=== PATIENT | male | born 1935 | race Caucasian/White ===

== ENCOUNTER 2018-01-23 10:48 | Inpatient (IN) | payer MEDICARE, OTHER ==
[2018-01-23] MEDS ORDERED: Sodium Chloride 0.9% 1,000 ML IV ONE (11:07)
[2018-01-23 11:31] LABS: BASOPHILE ABSOLUTE 0.1 Th/cumm (0-0.2); EOSINOPHILE ABSOLUTE 0.5 Th/cmm (0.1-0.4); HEMATOCRIT 32.9 % (41.0-60); HEMOGLOBIN 11.1 gm/dL (12-16); LYMPHOCYTE ABSOLUTE 1.9 Th/cmm (1.5-3.0); MANUAL DIFF REQUIRED? YES; MEAN CELL VOLUME 88.4 fl (80-99); MEAN CORPUSCULAR HEMOGLOBIN 29.8 pg (27.0-31.0); MEAN CORPUSCULAR HGB CONC 33.7 pg (28.0-36.0); MEAN PLATELET VOLUME 10.2 fl; MONOCYTE ABSOLUTE 1.5 Th/cmm (0.3-1.0); NEUTROPHILE ABSOLUTE 23.4 Th/cmm (1.8-8.0); PLATELET COUNT 580 Th/cmm (150-400); RED BLOOD COUNT 3.72 Mil/cmm (3.80-5.80); RED CELL DISTRIBUTION WIDTH 15.9 % (11.5-20.0)
[2018-01-23 11:35] LABS: WHITE BLOOD COUNT 27.4 Th/cmm (4.8-10.8)
[2018-01-23 11:38] LABS: INR 1.07 (0.5-1.4); PROTHROMBIN TIME (TEST) 11.1 SECONDS (9.5-11.5)
[2018-01-23] MEDS ORDERED: Levofloxacin 500mg/100mL 500 MG/100 ML BAG IV ONE ×2 (11:38→11:40)
--- NOTE | 2018-01-23 11:40 | ED Physician Chart ---
ED Chief Complaint/HPI - Patient Information Date Seen:: 01/23/18 Time Seen:: 11:15 Chief Complaint:: Hematemesis History of Present Illness:: onset x one day of N/V, hematemesis, cough, fever, and melena; no report of trauma, H/As, S/T, neck pain, C/P, SOB, Abd. Pain, A/D/C, hematochezia, chills, or urinary s/s Allergies:: Allergies Allergy/AdvReac Type Severity Reaction Status Date / Time No Known Allergies Allergy Verified 01/23/18 11:16 Vitals:: Vital Signs - 8 hr 01/23/18 11:16 Temp 98.3 F HR 130 RR 23 BP 119/73 O2 Sat % 95 Historian:: Patient, EMS Review:: Nurse's Note Reviewed, Old Chart Reviewed, EMS run form Reviewed ED Review of Systems - Review of Systems General/Constitutional: Fever, No chills, No weight loss, Weakness, No diaphoresis, No edema, No loss of appetite Skin: No skin lesions, No rash, No bruising Head: No headache, No light-headedness Eyes: No loss of vision, No pain, No diplopia ENT: No earache, No nasal drainage, No sore throat, No tinnitus Neck: No neck pain, No swelling, No thyromegaly, No stiffness, No mass noted Cardio Vascular: No chest pain, No palpitations, No PND, No orthopnea, No edema Pulmonary: SOB, Cough, No sputum, Wheezing GI: Nausea, Vomiting, Diarrhea, No pain, Melena, No hematochezia, No constipation, Hematemesis G/U: No dysuria, No frequency, No hematuria, No nacturia Musculoskeletal: No bone or joint pain, No back pain, No muscle pain Endocrine: No polyuria, No polydipsia Psychiatric: No prior psych history, No depression, No anxiety, No suicidal ideation, No homicidal ideation, No auditory hallucination, No visual hallucination Hematopoietic: No bruising, No lymphadenopathy Allergic/Immuno: No urticaria, No angioedema Neurological: No syncope, No focal symptoms, Weakness, No paresthesia, No headache, No seizure, No dizziness, No confusion, No vertigo ED Past Medical History - Past Medical History Obtainable: Yes Past Medical History: HTN, Asthma/COPD, Dyslipidemia, PUD/GERD, Other ( Respiratory Failure) Family History: HTN Social History: Smoker, No Alcohol, No Drug Use, , Care Facility Surgical History: other (Tracheostomy) Psychiatricy History: None Medication: Reviewed Family Medical History - Family Member Mother History Unknown: Yes ED Physical Exam - Physical Examination General/Constitutional: Awake, Well-developed, well-nourished, Alert, No distress, GCS 15, Non-toxic appearing, Ambulatory Head: Atraumatic Eyes: Lids, conjuctiva normal, PERRL, EOMI Skin: Nl inspection, No rash, No skin lesions, No ecchymosis, Well hydrated, No lymphadenopathy ENMT: External ears, nose nl, TM canals nl, Nasal exam nl, Lips, teeth, gums nl , Oropharynx nl, Tonsils nl Neck: Nontender, Full ROM w/o pain, No JVD, No nuchal rigidity, No bruit, No mass, No stridor Respiratory: Nl effort/Exclusion, Clear to Auscultation, No Wheeze/Rhonchi/Rales Cardio Vascular: RRR, No murmur, gallop, rubs, NL S1 S2, Carotid/Femoral/Distal pulses equal bilaterally GI: No tenderness/rebounding/guarding, No organomegaly, No hernia, Normal BS's, Nondistended, No mass/bruits, No McBurney tenderness, Rectum exam nl : No CVA tenderness Extremities: No tenderness or effusion, Full ROM, normal strength in all extremities, No edema, Normal digits & nails Neuro/Psych: Alert/oriented, DTR's symmetric, Normal sensory exam, Normal motor strength, Judgement/insight normal, Mood normal, Normal gait, No focal deficits Misc: Normal back, No paraspinal tenderness ED Labs/Radiology/EKG Results - Lab Results Results: Laboratory Tests 01/23/18 11:15 WBC 27.4 H* RBC 3.72 L Hgb 11.1 L Hct 32.9 L MCV 88.4 MCH 29.8 MCHC Differential 33.7 RDW 15.9 Plt Count 580 H MPV 10.2 Comments:: WBC: 27.4; U/A: + Pyuria; D-Dimer: 2960; BUN: 34; - Radiology Results Comments:: + Infiltrate - EKG Interpretations EKG Time:: 11:28 Rate & Rhythm: 144; SVT/ST Comments:: RBBB; LAFB; non-specific st-t changes ED Septic Shock - . Is Septic Shock (SBP<90, OR Lactate>4 mmol\L) present?: No - <6hrs of presentation: Vital Signs: Vital Signs - 8 hr 01/23/18 11:16 Temp 98.3 F HR 130 RR 23 BP 119/73 O2 Sat % 95 ED Reassessment (Disposition) - Reassessment Reassessment Condition:: Improved - Diagnosis Diagnosis:: Dx: PNA; UTI; Sepsis; Dehydration; Anemia; GI Bleed; Respiratory Failure; COPD; Leukocytosis; Hematemesis; Melena; Upper GI Bleed - Aftercare/Follow up Instructions Aftercare/Follow-Up Instructions:: Counseled pt regarding lab results/diagnosis & need follow up, Counseled pt & family regarding lab results/diagnosis & need follow up - Patient Disposition Discharge/Transfer:: Acute Care w/in this hosp Accepting Physician:: Dr. Gonzalez Time Called:: 1300 Time Responded:: 13:00 Admitted to:: ICU Spoke to:: Dr. Gonzalez Admitting Medical Physician:: Dr. Gonzalez Condition at Disposition:: Stable, Improved
[2018-01-23 11:51] LABS: ALB/GLOB RATIO 0.6 (1.0-1.8); ALBUMIN 3.3 gm/dL (4.2-5.5); ALKALINE PHOSPHATASE 76 U/L (34-104); ANION GAP 14.1 (7.0-16.0); BILIRUBIN,TOTAL 0.4 mg/dL (0.3-1.0); BUN - UREA NITROGEN 34 mg/dL (7-25); CALCIUM SERUM 10.2 mg/dL (8.6-10.3); CARBON DIOXIDE 31.4 mEq/L (21.0-31.0); CHLORIDE 99 mEq/L (98-107); CHOLESTEROL 174 mg/dL (<200); CREATININE - SERUM 0.7 mg/dL (0.7-1.3); CREATININE KINASE 11 U/L (30-223); GLUCOSE 186 mg/dL (70-105); HDL -HIGH DENSITY LIPOPROTEIN 28 mg/dL (23-92); POTASSIUM SERUM 4.5 mEq/L (3.5-5.1); SGOT 13 U/L (13-39); SGPT/ALT 10 U/L (7-52); SODIUM SERUM 140 mEq/L (136-145); TOTAL PROTEIN,SERUM 9.2 gm/dL (6.0-8.3); TRIGLYCERIDES 171 mg/dL (<150)
[2018-01-23 11:52] LABS: AMYLASE SERUM 40 U/L (29-103); LIPASE 23 U/L (11-82)
[2018-01-23 11:53] LABS: pH 7.51 (7.35-7.45)
[2018-01-23 12:15] LABS: DDIMER QUANT 2960 ng/mL (100-400)
[2018-01-23 12:18] LABS: URINE MICROSCOPIC INDICATED? YES; URINE SOURCE CLEAN C
[2018-01-23 12:20] LABS: BAND NEUTROPHILE 5 % (0-10); EOSINOPHIL 4 % (0-5); LYMPHOCYTE 3 % (20-50); MONOCYTE 4 % (2-10); NEUTROPHILS 84 % (40-80); TOTAL CELLS COUNTED 100
[2018-01-23 12:24] LABS: URINE BILIRUBIN NEGATIVE (NEGATIVE); URINE BLOOD NEGATIVE (NEGATIVE); URINE CLARITY CLEAR (CLEAR); URINE COLOR YELLOW; URINE GLUCOSE (UA) NEGATIVE (NEGATIVE); URINE KETONE NEGATIVE (NEGATIVE); URINE LEUKOCYTE ESTERASE SMALL (NEGATIVE); URINE NITRATE NEGATIVE (NEGATIVE); URINE PH 6.5 (4.6 - 8.0); URINE PROTEIN 30 mg/dL (NEGATIVE); URINE UROBILINOGEN 0.2 E.U./dL (0.2 - 1.0)
[2018-01-23 12:28] LABS: URINE RBC 0-2 /hpf (0-5)
[2018-01-23 12:31] LABS: URINE BACTERIA 1+ /hpf (NONE SEEN); URINE EPITHELIAL CELLS FEW /lpf (FEW)
--- NOTE | 2018-01-23 12:40 | Diagnostic Imaging Report ---
Portable chest x-ray HISTORY: Pain There is marked cardiomegaly. Atherosclerotic calcination seen in the aorta. There appears to be retrocardiac density suggesting a large hiatal hernia. Generalized accentuation of the lower interstitial lung markings. However, no acute focal processes are seen. Tracheostomy noted. IMPRESSION: 1. No definite acute focal pulmonary processes 2. Marked cardiomegaly with atherosclerotic vascular changes 3. Suggestion of a retrocardiac density probably related to a large hiatal hernia.
[2018-01-23] MEDS ORDERED: Metoprolol tartrate 1 mg/ml 5mL Amp IV STA (14:24)
[2018-01-23] MEDS ORDERED: Metoprolol tartrate 1 mg/ml 5mL Amp IV ONE (14:37)
[2018-01-23 18:40] LABS: A1C % 5.2 % (4.0-6.0)
[2018-01-23] MEDS ORDERED: Potassium Chloride Elixir 20 mEq /15 mL UDC GT PRN (18:52)
[2018-01-23] MEDS ORDERED: Dextrose 50% 50 mL Abboject IVP PRN (18:52)
[2018-01-23] MEDS ORDERED: Mag Sulfate 2gm/50mL Premix 2 GM/50 ML BAG IV PRN (18:52)
[2018-01-23] MEDS: D5-0.9%NS 1,000 ML IV SCH (20:00)
[2018-01-23 20:03] LABS: pH 7.27 (7.35-7.45)
[2018-01-23 20:04] LABS: ALLEN TEST P
[2018-01-23] MEDS: INSULIN ASPART SLIDING SCALE 100 UNITS/ML UNIT SUBQ SCH (20:50)
[2018-01-23] MEDS: Hydrocortisone Sodium Succ 100 mg Vial IVP SCH (20:50)
[2018-01-23] MEDS: Morphine Sulfate 4 mg/mL 1mL Syr IVP PRN (20:55)
--- NOTE | 2018-01-23 22:04 | Consultation ---
Consult Note - Consult Note Service Date: 01/23/18 Referring Physician: Davian Gonzalez Consult Note: PHYSICIAN Consultation Note: Date of Admission: 01/23/18 Purpose of Consultation: Septic shock, pneumonia. Chief Complaint: Patient PATRICK BURK was admitted to location Intensive Care Unit with SEPSIS. History of Present Illness: 82 year male with a past medical history of past medical history of hypertension, asthma, COPD, dyslipidemia, diabetes, GERD, respiratory failure, on ventilator. He was brought from the nursing facility for nausea and vomiting associated with hematemesis. It was associated with cough, fever, and melena. On initial evaluation his temperature 98.3. WBC count was 27,100. Urinalysis showed pyuria and bacteriuria. Chest x-ray shows cardiomegaly.No evidence of any acute infiltrate. He was very hypotensive so Levophed was started. He already received 2 L bolus. Past Medical History: Hypertension, asthma, COPD, dyslipidemia, diabetes, GERD, respiratory failure, on ventilator. Allergies Allergy/AdvReac Type Severity Reaction Status Date / Time No Known Allergies Allergy Verified 01/23/18 11:16 Vital Signs Temp 96.8 F 01/23/18 17:17 Pulse 130 01/23/18 21:09 Resp 34 01/23/18 17:54 BP 86/50 01/23/18 17:17 Pulse Ox 1 01/23/18 21:09 Laboratory Results - last 24 hr 01/23/18 01/23/18 01/23/18 17:13 19:50 20:04 Specimen Source ARTERIAL Sample Site Left Radial pH 7.27 L pCO2 49.0 H pO2 210.0 H HCO3 21.0 Base Excess -4.0 L O2 Saturation 100.0 Lito Test P Vent Rate 12 Inspired O2 100 Tidal Volume 550 PEEP 5 Pressure (ins/psv/peep) N/A Critical Value O.HELTON POC Glucose 256 H 272 H Home Medication Medication Instructions Recorded Type Acetaminophen [Tylenol 640 mg GT Q4H PRN 01/23/18 History 650mg/20.3mL Suspension] Chlorhexidine Gluconate 0.12% 15 ml PO Q12H 01/23/18 History [Peridex] Dorzolamide HCl/Timolol Maleat 1 drop EACH EYE BID 01/23/18 History [Cosopt Eye Drops] Glucagon HCl 1 mg IM Q6H PRN 01/23/18 History Insulin Human Regular [NovoLIN R*] 0 unit SUBQ Q6H 01/23/18 History Lactobacillus Acidophilus/Pect 1 cap GT BID 01/23/18 History [Acidophilus-Pectin Capsule] Lansoprazole [Prevacid] 1 cap GT DAILY 01/23/18 History Latanoprost 0.005% Ophth Soln 1 drop OP HS 01/23/18 History [Xalatan 0.005% Ophth Soln] Metoclopramide [Reglan] 10 ml GT Q6H 01/23/18 History Ondansetron [Zofran Odt] 1 tab GT Q8H 01/23/18 History Polyethylene Glycol [Polyox 17 gm GT Q12H PRN 01/23/18 History [id number]] Tramadol HCl [Ultram] 1 tab GT Q6H PRN 01/23/18 History Ziprasidone HCl [Geodon] 1 cap GT BID 01/23/18 History Current Medications Generic Name Dose Route Start Last Admin Trade Name Freq PRN Reason Stop Dose Admin Acetaminophen 650 mg 01/23/18 18:52 Tylenol PO 03/24/18 18:51 Q6H PRN HEADACHE/TEMP ABOVE 100F Albuterol/Ipratropium 3 ml 01/23/18 23:00 Duoneb Neb HHN 03/24/18 22:59 Q4HRT JOSE ALFREDO Dextrose 50 ml 01/23/18 18:52 D50w IVP 03/24/18 18:51 PRN PRN BLOOD SUGAR BELOW 60 Heparin Sodium (Porcine) 5,000 units 01/23/18 21:00 01/23/18 20:50 Heparin SUBQ 03/24/18 20:59 5,000 units Q12HR JOSE ALFREDO Administration Hydrocortisone Sodium Succinate 50 mg 01/23/18 21:00 01/23/18 20:50 Solu-Cortef IVP 03/24/18 20:59 50 mg Q8HR JOSE ALFREDO Administration Piperacillin Sod/Tazobactam 100 mls @ 100 mls/hr 01/23/18 21:00 01/23/18 20: 40 Sod 4.5 gm/ Sodium Chloride IV 03/24/18 20:59 100 mls/hr Q8HR JOSE ALFREDO Administration Magnesium Sulfate 2 gm in 50 mls @ 25 mls/hr 01/23/18 18:52 Magnesium Sulfate Premix IV 03/24/18 18:51 DAILY PRN Magnesium level less than 1.6 Dextrose/Sodium Chloride 1,000 mls @ 125 mls/hr 01/23/18 19:00 01/23/18 20:00 D5-0.9%Ns IV 03/24/18 18:59 125 mls/hr .Q8H JOSE ALFREDO Administration Vancomycin HCl 1.5 gm/ 250 mls @ 83.333 mls/hr 01/23/18 21:00 Dextrose IV 01/23/18 23:59 ONCE@2100 ONE Insulin Aspart 0 units 01/23/18 21:00 01/23/18 20:50 Novolog Insulin Sliding Scale SUBQ 03/24/18 20:59 4 units ACHS JOSE ALFREDO Administration Protocol Latanoprost 1 drop 01/23/18 21:00 01/23/18 21:13 Xalatan 0.005% Ophth Soln EACH EYE 03/24/18 20:59 Not Given HS JOSE ALFREDO Lorazepam 1 mg 01/23/18 18:52 Ativan IVP 03/24/18 18:51 Q4HR PRN Anxiety Protocol Miscellaneous 1 ea 01/23/18 16:02 Zosyn Iv Per Pharmacy 03/24/18 16:01 PRN PRN PROTOCOL Miscellaneous 1 ea 01/23/18 18:51 Vancomycin Iv Per Pharmacy 03/24/18 18:50 PRN PRN PROTOCOL Morphine Sulfate 1 mg 01/23/18 18:52 01/23/18 20:55 Morphine IVP 03/24/18 18:51 1 mg Q4H PRN Administration Severe Pain Ondansetron HCl 4 mg 01/23/18 18:52 Zofran IVP 03/24/18 18:51 Q6H PRN Nausea / Vomiting Potassium Chloride 40 meq 01/23/18 18:52 Potassium Chloride Elixir GT 03/24/18 18:51 DAILY PRN k level less than 3.5 Tramadol HCl 50 mg 01/23/18 18:53 Ultram GT 03/24/18 18:52 Q6H PRN Pain (Moderate) Review of Systems: A 12 point ROS was reviewed with the pertinent positive and negatives noted in the HPI. Social History Smoking Status Unknown if ever smoked Physical Exam: General: Comfortable, cachectic. Not in acute distress. Remains on ventilatory support. Status post tracheostomy. HEENT: Head: Normocephalic, atraumatic. Oral cavity: Moist, pink tongue. Eyes : Pallor is present. No icterus. Pupil PERRLA. EOMI. Neck: Trach site is clear. Cardio: S1 and S2 within normal limits regular rhythm no murmur or gallop. Respiratory: Vesicular breath sound. Crackles present bilaterally. Abdominal: Soft, nontender, nondistended bowel sounds present. Genital/Urinary: Extremities: No cyanosis, no clubbing, no edema. Neurological: Alert awake and oriented. Follows the common. Assessment: 1. Leukocytosis, hypotension consistent with Septic shock. The lactic acid 1.68. 2. UTI. 3. Aspiration pneumonia. 4. Vent dependent respiratory failure.. 5. Abdominal pain. 6. Nausea and vomiting. Gastritis. May have another pathology. 7. History of hypertension. 8. Asthma, COPD. 9. Protein calorie malnutrition. 10. Diabetes mellitus type 2. 11. GERD. Plan: Continue vancomycin and Zosyn. Continue with the fluid boluses. Thank you, Dr. Gonzalez, for involving me in taking care of this patient. Signed, Jian Simeon M.D. [id number]
[2018-01-23] MEDS ORDERED: Norepinephrine 4 mg/4mL Vial IV ONE (22:29)
[2018-01-23] MEDS: Albuterol/Ipratropium Neb 3 ML AERS HHN SCH (23:25)
--- NOTE | 2018-01-23 23:37 | Consultation ---
DATE OF CONSULTATION: 01/23/2018 HISTORY OF PRESENT ILLNESS: This is an 82-year-old male with history of COPD, recent hip surgery, and recent pneumonia status post tracheostomy about a month and a half ago. According to his , the patient has been sick multiple times. He had abdominal surgery and apparently has history of aspiration. The patient was admitted for sepsis and pneumonia. He was hypotensive earlier, was given bolus now and was hypoxemic, placed on the full ventilator support at this time. OTHER PAST MEDICAL HISTORY: As above. SOCIAL HISTORY: According to the . No history of smoking in the past. REVIEW OF SYSTEMS: Unable to obtain because of the patient's condition. PHYSICAL EXAMINATION: GENERAL: The patient is on the vent, obtunded. VITAL SIGNS: Temperature 96.8, pulse 120, respiration is 22-30, blood pressure is 86/50, and saturation is 92%-94%. HEENT: Atraumatic and normocephalic. Pupils react to light and accommodation. Ears, nose, and throat normal. CHEST: There is rhonchi, decreased breath sounds at bases. HEART: Regular rate and rhythm. ABDOMEN: Soft. EXTREMITIES: No edema. LABORATORY DATA AND DIAGNOSTIC STUDIES: WBC is 27.4, hemoglobin 11.1, hematocrit 32.9, and platelets 580. ABGs: The pH 7.51, pCO2 of 44, pO2 is 61, bicarbonate is 33, and saturation is 93%. Sodium is 140, potassium 4.5, BUN 34, and creatinine 0.7. BNP is 166. D-dimer is evelated. Chest x-ray, bilateral infiltrate. IMPRESSION: 1. Respiratory failure. 2. Sepsis. 3. Bilateral pneumonia. 4. Hypoxemia. 5. Chronic obstructive pulmonary disease per history. PLAN: 1. IV fluids, might need pressors. 2. Antibiotics. 3. Add steroids. 4. Agree with a portable V/Q scan now until further testing, which is more stable. Discussed with in details about his condition. She does not want him to be resuscitated. No CPR and no chest compressions. Continue with the current treatment. Thank you very much for this consultation. We will follow the patient with you. JOB# [id number] [facility]
[2018-01-24] MEDS: Morphine Sulfate 4 mg/mL 1mL Syr IVP PRN (03:00)
[2018-01-24] MEDS: Albuterol/Ipratropium Neb 3 ML AERS HHN SCH ×6 (03:09→22:54)
[2018-01-24] MEDS ORDERED: Norepinephrine 4 mg/4mL Vial IV ONE (04:06)
[2018-01-24 05:07] LABS: HEMATOCRIT 30.4 % (41.0-60); HEMOGLOBIN 10.4 gm/dL (12-16); MANUAL DIFF REQUIRED? YES; MEAN CELL VOLUME 91.4 fl (80-99); MEAN CORPUSCULAR HEMOGLOBIN 31.1 pg (27.0-31.0); MEAN CORPUSCULAR HGB CONC 34.1 pg (28.0-36.0); MEAN PLATELET VOLUME 11.5 fl; RED BLOOD COUNT 3.32 Mil/cmm (3.80-5.80); RED CELL DISTRIBUTION WIDTH 16.4 % (11.5-20.0)
[2018-01-24] MEDS: Hydrocortisone Sodium Succ 100 mg Vial IVP SCH ×3 (05:22→21:11)
[2018-01-24 05:37] LABS: PLATELET COUNT 442 Th/cmm (150-400); WHITE BLOOD COUNT 52.7 Th/cmm (4.8-10.8)
[2018-01-24 05:44] LABS: TOTAL CELLS COUNTED 100
[2018-01-24 05:45] LABS: BAND NEUTROPHILE 7 % (0-10); EOSINOPHIL 1 % (0-5); LYMPHOCYTE 4 % (20-50); MONOCYTE 4 % (2-10); NEUTROPHILS 84 % (40-80)
[2018-01-24 05:54] LABS: BUN - UREA NITROGEN 59 mg/dL (7-25); CALCIUM SERUM 9.2 mg/dL (8.6-10.3); CARBON DIOXIDE 19.3 mEq/L (21.0-31.0); CHLORIDE 109 mEq/L (98-107); CREATININE - SERUM 1.5 mg/dL (0.7-1.3); GLUCOSE 256 mg/dL (70-105); POTASSIUM SERUM 5.3 mEq/L (3.5-5.1); SODIUM SERUM 141 mEq/L (136-145)
[2018-01-24] MEDS: INSULIN ASPART SLIDING SCALE 100 UNITS/ML UNIT SUBQ SCH ×4 (06:41→21:19)
--- NOTE | 2018-01-24 07:57 | History & Physical ---
ADMIT DATE: 01/24/2018 CHIEF COMPLAINT: Sepsis. HISTORY OF PRESENT ILLNESS: The patient is a bed bound and altered 82-year-old male. He is a patient of mine at the [facility] facility. He was sent to the hospital because of sepsis. He has been declining as well. He had elevated white count and fevers as well. He has history of chronic respiratory failure, COPD, and dysphagia as well. He also has stage IV sacrococcyx decubitus ulcer. PAST MEDICAL HISTORY: Significant for chronic respiratory failure, COPD, multiple pneumonias in the past along with a history of aspiration and dysphagia and COPD and chronic respiratory failure. SURGICAL HISTORY: Positive for tracheostomy, G-tube placement, and abdominal surgery as well. SOCIAL HISTORY: No history of alcohol, tobacco, or drug abuse. FAMILY HISTORY: Noncontributory. ALLERGIES: No known drug allergies. MEDICATIONS: detention medication reviewed and reconciled. REVIEW OF SYSTEMS: GENERAL: Positive recent fatigue and worsening confusion. HEENT: No recent head trauma, change in vision, taste, hearing, or smell. Oral: No recent pain or discharge. NECK: He has history of tracheostomy. ABDOMEN: He has history of abdominal surgeries, but no recent pain or distention. GENITOURINARY: Positive for recent increased urinary frequency. He also has incontinence. EXTREMITIES: No recent edema. SKIN: He has history of stage IV sacrococcyx decubitus ulcer. NEUROLOGIC: There is a possible history of stroke. PSYCHIATRIC: No history of psychosis or hallucinations. RESPIRATORY: He has history of chronic respiratory failure. GASTROINTESTINAL: He has history of dysphagia. NEUROLOGIC: He is bedbound. PHYSICAL EXAMINATION: VITAL SIGNS: Temperature is 96.9 degrees, heart rate is ranging from to 130s-140s, respiration is about in the 20s right now, blood pressure is 97/62. Currently, no pain. GENERAL: No acute distress. He is not awake or alert. NECK: Tracheostomy is intact. No JVD. Oral: Clear. His mouth is open. CARDIOVASCULAR: He is in sinus tachycardia. ABDOMEN: Nontender, nondistended. G-tube is intact, clamped currently. EXTREMITIES: No edema. SKIN: Poor turgor. He has stage 4 sacrococcyx decubitus ulcer. NEUROLOGIC: He is bedbound. No evidence of acute seizure activity. PSYCHIATRIC: No psychosis or hallucinations. RESPIRATORY: Decreased breath sounds bilaterally with rales and congestion. GENITOURINARY: No hematuria is noted. LABORATORY DATA: The patient's chest x-ray shows large hiatal hernia. White count is 27.4, hemoglobin is 11.1 and platelet count is 580,000. D-dimer is 2960. ABG shows pH of 7.27, pCO2 of 49, pO2 of 210. Sodium 141, potassium 5.3, chloride 103, bicarbonate 19.3, BUN 59, creatinine 1.5, glucose is 215. ASSESSMENT: 1. Sepsis. 2. Infected stage 4 sacrococcyx decubitus ulcer. 3. Chronic obstructive pulmonary disease. 4. Dysphagia. 5. Acute on chronic respiratory failure. 6. Vasomotor nephropathy. 7. Hyperkalemia. 8. Metabolic encephalopathy. 9. Diabetes mellitus, out of control. 10. Diabetic nephropathy. PLAN: The patient is on Levophed drip. He is getting aggressive hydration. He is received fluid boluses last night as well. Prognosis is poor. Family has made him a DNR. Continue ventilator support. ID and Pulmonary already saw the patient. He is on IV steroids as well. Follow up on CBC and bandemia. He will get Kayexalate today. Follow up on chemistry panel. Continue fingerstick blood sugars and regular insulin sliding scale. Continue wound care. ID, Cardiology, and Pulmonary/Critical Care have been consulted. JOB# [id number]
--- NOTE | 2018-01-24 08:31 | Diagnostic Imaging Report ---
Nuclear medicine perfusion scan HISTORY: Shortness of breath, rule out pulmonary embolus COMPARISON: chest x-ray on 01/23/2018 Technique/procedure: Exam is severely limited due to patient's medical condition and as ventilation images are not able be obtained only limited perfusion images were able to be obtained. For the perfusion portion of examination 5.3 millicuries of technetium 99 labeled MAA was administered intravenously and anterior, DANISH, ALONSO scintigraphic images of the lungs were obtained. No gross large segmental defects identified based on this limited examination. IMPRESSION: Limited examination as patient could not tolerate the entire exam. Overall the exam is low probability for pulmonary embolus.
--- NOTE | 2018-01-24 08:47 | Diagnostic Imaging Report ---
CHEST X-RAY: AP view INDICATION: Shortness of breath COMPARISON: Chest x-ray 01/23/2018 Findings: Bibasal infiltrates are noted. There is a probable hiatal hernia. Congestive changes are also noted with superimposed chronic changes. Heart size is normal. Tracheostomy tube is stable. IMPRESSION: Congestive changes bibasal infiltrates. There is likely superimposed COPD. Probable retrocardiac hiatal hernia.
[2018-01-24] MEDS ORDERED: Vancomycin HCl 1.5 GM in Sodium Chloride 0.9% 500 ML IV ONE (09:00)
[2018-01-24] MEDS ORDERED: Probiotic Screen MC PRN (10:10)
[2018-01-24 10:28] LABS: pH 7.25 (7.35-7.45)
[2018-01-24 10:29] LABS: ALLEN TEST Positive
[2018-01-24 11:15] VITALS: BP 110/68
[2018-01-24] MEDS ORDERED: Sodium Bicarbonate 8.4% 50mEq PFS IVP ONE (12:01)
--- NOTE | 2018-01-24 16:18 | Infectious Disease Prog Note ---
Infectious Disease Subjective - Review of Systems Service Date: 01/24/18 Subjective: Unresponsive, on the ventilator, and s/p trach and peg. Infectious Disease Objective - Results Result Diagrams: 01/24/18 04:30 01/24/18 04:30 Recent Labs: Laboratory Last Values WBC 52.7 Th/cmm (4.8-10.8) H* D 01/24/18 04:30 RBC 3.32 Mil/cmm (3.80-5.80) L 01/24/18 04:30 Hgb 10.4 gm/dL (12-16) L 01/24/18 04:30 Hct 30.4 % (41.0-60) L 01/24/18 04:30 MCV 91.4 fl (80-99) 01/24/18 04:30 MCH 31.1 pg (27.0-31.0) H 01/24/18 04:30 MCHC Differential 34.1 pg (28.0-36.0) 01/24/18 04:30 RDW 16.4 % (11.5-20.0) 01/24/18 04:30 Plt Count 442 Th/cmm (150-400) H D 01/24/18 04:30 MPV 11.5 fl 01/24/18 04:30 Band Neutrophils % 7 % (0-10) 01/24/18 04:30 Neutrophils (Manual) 84 % (40-80) H 01/24/18 04:30 Lymphocytes 4 % (20-50) L 01/24/18 04:30 Monocytes 4 % (2-10) 01/24/18 04:30 Eosinophils 1 % (0-5) 01/24/18 04:30 PT 11.1 SECONDS (9.5-11.5) 01/23/18 11:15 INR 1.07 (0.5-1.4) 01/23/18 11:15 D-Dimer 2960 ng/mL (100-400) H 01/23/18 11:15 Specimen Source Arterial 01/24/18 10:16 Sample Site Right Radial 01/24/18 10:16 pH 7.25 (7.35-7.45) L 01/24/18 10:16 pCO2 44.0 mmHg (35.0-45.0) 01/24/18 10:16 pO2 76.0 mmHg (80.0-100.0) L 01/24/18 10:16 HCO3 18.8 mEq/L (20.0-26.0) L 01/24/18 10:16 Base Excess -7.7 mEq/L (-3.0-3.0) L 01/24/18 10:16 O2 Saturation 92.0 % (92.0-100.0) 01/24/18 10:16 Lito Test Positive 01/24/18 10:16 Vent Rate 12 01/24/18 10:16 Inspired O2 60 01/24/18 10:16 Tidal Volume 500 01/24/18 10:16 PEEP 5 01/24/18 10:16 Pressure (ins/psv/peep) NA 01/24/18 10:16 Critical Value LZHANG 01/24/18 10:16 Sodium 141 mEq/L (136-145) 01/24/18 04:30 Potassium 5.3 mEq/L (3.5-5.1) H 01/24/18 04:30 Chloride 109 mEq/L (98-107) H 01/24/18 04:30 Carbon Dioxide 19.3 mEq/L (21.0-31.0) L 01/24/18 04:30 Anion Gap 18.0 (7.0-16.0) H 01/24/18 04:30 BUN 59 mg/dL (7-25) H 01/24/18 04:30 Creatinine 1.5 mg/dL (0.7-1.3) H 01/24/18 04:30 Est GFR ( Amer) TNP 01/24/18 04:30 Est GFR (Non-Af Amer) TNP 01/24/18 04:30 BUN/Creatinine Ratio 39.3 01/24/18 04:30 Glucose 256 mg/dL (70-105) H 01/24/18 04:30 POC Glucose 221 MG/DL (70 - 105) H 01/24/18 11:51 Hemoglobin A1c % 5.2 % (4.0-6.0) 01/23/18 11:15 Whole Bld Lactic Acid 1.68 mmol/L (0.60-1.99) 01/23/18 11:25 Calcium 9.2 mg/dL (8.6-10.3) 01/24/18 04:30 Magnesium 2.2 mg/dL (1.9-2.7) 01/23/18 00:05 Total Bilirubin 0.4 mg/dL (0.3-1.0) 01/23/18 11:15 AST 13 U/L (13-39) 01/23/18 11:15 ALT 10 U/L (7-52) 01/23/18 11:15 Alkaline Phosphatase 76 U/L (34-104) 01/23/18 11:15 Creatine Kinase 11 U/L (30-223) L 01/23/18 11:15 Troponin I 0.01 ng/mL (0.01-0.05) 01/23/18 11:15 B-Natriuretic Peptide 166.0 pg/mL (5.0-100.0) H 01/23/18 11:15 Total Protein 9.2 gm/dL (6.0-8.3) H 01/23/18 11:15 Albumin 3.3 gm/dL (4.2-5.5) L 01/23/18 11:15 Globulin 5.9 gm/dL 01/23/18 11:15 Albumin/Globulin Ratio 0.6 (1.0-1.8) L 01/23/18 11:15 Triglycerides 171 mg/dL (<150) H 01/23/18 11:15 Cholesterol 174 mg/dL (<200) 01/23/18 11:15 LDL Cholesterol Direct 133 mg/dL (75-193) 01/23/18 11:15 HDL Cholesterol 28 mg/dL (23-92) 01/23/18 11:15 Amylase 40 U/L (29-103) 01/23/18 11:15 Lipase 23 U/L (11-82) 01/23/18 11:15 Urine Source CLEAN C 01/23/18 11:52 Urine Color YELLOW 01/23/18 11:52 Urine Clarity CLEAR (CLEAR) 01/23/18 11:52 Urine pH 6.5 (4.6 - 8.0) 01/23/18 11:52 Ur Specific Peculiar 1.015 (1.005-1.030) 01/23/18 11:52 Urine Protein 30 mg/dL (NEGATIVE) H 01/23/18 11:52 Urine Glucose (UA) NEGATIVE mg/dL (NEGATIVE) 01/23/18 11:52 Urine Ketones NEGATIVE mg/dL (NEGATIVE) 01/23/18 11:52 Urine Blood NEGATIVE (NEGATIVE) 01/23/18 11:52 Urine Nitrate NEGATIVE (NEGATIVE) 01/23/18 11:52 Urine Bilirubin NEGATIVE (NEGATIVE) 01/23/18 11:52 Urine Urobilinogen 0.2 E.U./dL (0.2 - 1.0) 01/23/18 11:52 Ur Leukocyte Esterase SMALL (NEGATIVE) H 01/23/18 11:52 Urine RBC 0-2 /hpf (0-5) H 01/23/18 11:52 Urine WBC 10-25 /hpf (0-5) H 01/23/18 11:52 Ur Epithelial Cells FEW /lpf (FEW) 01/23/18 11:52 Urine Bacteria 1+ /hpf (NONE SEEN) H 01/23/18 11:52 Urine Mucus FEW /lpf (FEW) 01/23/18 11:52 - Physical Exam Vitals and I&O: Vital Signs Temp 97.8 F 01/24/18 12:00 Pulse 142 01/24/18 15:00 Resp 34 01/24/18 12:00 BP 99/61 01/24/18 15:00 Pulse Ox 94 01/24/18 14:00 Intake & Output 01/23/18 01/24/18 01/24/18 18:59 06:59 18:59 Intake Total 693.014 Output Total 225 Balance 468.014 Weight (lbs) 74.843 kg Intake: Intake, IV Amount 693.014 Norepinephrine 4 mg In 493.014 Dextrose 5% 250 ml @ 10 MCG/MIN 38.1 mls/hr IV TITR PRN Rx#:[id number] Piperacillin Sodium/ 200 Tazobact 4.5 gm In Sodium Chloride 0.9% 100 ml @ 100 mls/hr IV Q8HR JOSE ALFREDO Rx #:[id number] Output: Urine 225 Other: # Bowel Movements 1 Stool Characteristics Soft Brown Weight Source Bedscale Active Medications: Current Medications Acetaminophen (Tylenol) 650 mg PO Q6H PRN PRN Reason: HEADACHE/TEMP ABOVE 100F Stop: 03/24/18 18:51 Albuterol/Ipratropium (Duoneb Neb) 3 ml HHN Q4HRT JOSE ALFREDO Stop: 03/24/18 22:59 Last Admin: 01/24/18 12:29 Dose: 3 ml Dextrose (D50w) 50 ml IVP PRN PRN PRN Reason: BLOOD SUGAR BELOW 60 Stop: 03/24/18 18:51 Heparin Sodium (Porcine) (Heparin) 5,000 units SUBQ Q12HR [facility] Stop: 03/24/18 20:59 Last Admin: 01/24/18 08:15 Dose: 5,000 units Hydrocortisone Sodium Succinate (Solu-Cortef) 50 mg IVP Q8HR [facility] Stop: 03/24/18 20:59 Last Admin: 01/24/18 13:23 Dose: 50 mg Piperacillin Sod/Tazobactam (Sod 4.5 gm/ Sodium Chloride) 100 mls @ 100 mls/hr IV Q8HR [facility] Stop: 03/24/18 20:59 Last Admin: 01/24/18 13:22 Dose: 100 mls/hr Magnesium Sulfate (Magnesium Sulfate Premix) 2 gm in 50 mls @ 25 mls/hr IV DAILY PRN PRN Reason: Magnesium level less than 1.6 Stop: 03/24/18 18:51 Dextrose/Sodium Chloride (D5-0.9%Ns) 1,000 mls @ 125 mls/hr IV .Q8H [facility] Stop: 03/24/18 18:59 Last Admin: 01/23/18 20:00 Dose: 125 mls/hr Norepinephrine Bitartrate 8 mg (/ Dextrose) 258 mls @ 19.35 mls/hr IV TITR PRN ; Protocol; 10 MCG/MIN PRN Reason: BP MAINTENANCE (PER PROTOCOL) Stop: 03/24/18 18:59 Insulin Aspart (Novolog Insulin Sliding Scale) 0 units SUBQ ACHS JOSE ALFREDO PRN Reason: Protocol Stop: 03/24/18 20:59 Last Admin: 01/24/18 11:56 Dose: 4 units Latanoprost (Xalatan 0.005% Ophth Soln) 1 drop EACH EYE HS [facility] Stop: 03/24/18 20:59 Last Admin: 01/23/18 21:13 Dose: Not Given Lorazepam (Ativan) 1 mg IVP Q4HR PRN; Protocol PRN Reason: Anxiety Stop: 03/24/18 18:51 Last Admin: 01/23/18 23:38 Dose: 1 mg Miscellaneous (Zosyn Iv Per Pharmacy) 1 ea [facility] PRN PRN PRN Reason: PROTOCOL Stop: 03/24/18 16:01 Miscellaneous (Vancomycin Iv Per Pharmacy) 1 [facility] PRN PRN PRN Reason: PROTOCOL Stop: 03/24/18 18:50 Miscellaneous (Probiotic Screen) 1 [facility] PRN PRN PRN Reason: PROTOCOL Stop: 03/25/18 10:09 Morphine Sulfate (Morphine) 1 mg IVP Q4H PRN PRN Reason: Severe Pain Stop: 03/24/18 18:51 Last Admin: 01/24/18 03:00 Dose: 1 mg Ondansetron HCl (Zofran) 4 mg IVP Q6H PRN PRN Reason: Nausea / Vomiting Stop: 03/24/18 18:51 Pantoprazole Sodium (Protonix) 40 mg IVP DAILY JOSE ALFREDO Stop: 03/26/18 08:59 Potassium Chloride (Potassium Chloride Elixir) 40 meq GT DAILY PRN PRN Reason: k level less than 3.5 Stop: 03/24/18 18:51 Tramadol HCl (Ultram) 50 mg GT Q6H PRN PRN Reason: Pain (Moderate) Stop: 03/24/18 18:52 General: no acute distress, cachectic HEENT: atraumatic, normocephalic, PERRLA, EOMI Neck: supple, no thyromegaly, no lymphadenopathy, no rigid Cardiovascular: S1S2, regular Lungs: clear to percussion, rhonchi Abdomen: soft, bowel sounds, other (g tube site is clear), no tender, no distended, no mass Extremities: no cyanosis, no clubbing, no edema Neurological: other (Unresponsive.) Skin: other (sacral stage 4 wound.) - Procedures Procedures: Procedures Procedure Code Date RESPIRATORY VENTILATION, 24-96 CONSECUTIVE HOURS [id number] 01/23/18 Infectious Disease Assmt/Plan - Assessment Assessment: 1. Leukocytosis, hypotension consistent with Septic shock. The lactic acid 1.68. 2. UTI. 3. Aspiration pneumonia. 4. Vent dependent respiratory failure.. 5. Abdominal pain. 6. Nausea and vomiting. Gastritis. May have another pathology. 7. History of hypertension. 8. Asthma, COPD. 9. Protein calorie malnutrition. 10. Diabetes mellitus type 2. 11. GERD. - Plan Plan: Continue vanco iv and zosyn, will start flagyl suspecting, C diff colitis with this high WBC count. Condition is critical and prognosis is poor. Nutritional Asmnt/Malnutr-PDOC - Dietary Evaluation Malnutrition Findings (Please click <Entered> for more info): Nutritional Asmnt/Malnutrition Start: 01/24/18 15: 20 Text: Status: Complete Freq: Document 01/24/18 15:23 ERIN (Rec: 01/24/18 15:36 [email or web address]) Nutritional Asmnt/Malnutrition Patient General Information Nutritional Screening High Risk Consult Diagnosis sepsis Pertinent Medical Hx/Surgical Hx chronic respiratory failure, COPD, pneumonias, aspiration, dysphagia, trach, Gtube, abdominal surgery Subjective Information Consult received for elevated BG. Pt seen on vent via trach. No diet order at this time. TF clamped per nurse note. Pt on levophed noted. Current Diet Order/ Nutrition Support no diet order Pertinent Medications D5-0.9%ns, novolog, protonix, piperacillin Pertinent Labs 01/24 Na 141, K 5.3, Cl 109, BUN 59, Cr 1.5, glucose 256, POC 215-221 01/23 Na 140, K 4.5, Cl 99, BUN 34, Cr 0.7, glucose 186, A1c 5.2 Nutritional Hx/Data Height 1.83 m Height (Calculated Centimeters) 182.9 Current Weight (lbs) 74.843 kg Weight (Calculated Kilograms) 74.8 Weight (Calculated Grams) 60071.7 [place] Body Weight 178 % [place] Body Weight 93 Body Mass Index (BMI) 22.4 Weight Status Approriate GI Symptoms GI Symptoms None Last BM 01/24 Difficult in: None Usual diet at home glucerna 1.5 at 50ml/hr x 20hr , providing 1500kcal daily Skin Integrity/Comment: decubitus ulcer to sacrum Estimated Nutritional Goals BEE in Kcals: Using Current wt Calories/Kcals/Kg 27-32 Kcals Calculated 3498-0441 Protein: Using Current wt Protein g/k.2-1.4 Protein Calculated 90-105 Fluid: ml 2024-2400ml (1ml/kcal) Nutritional Problem 2. Problem Problem inadequate energy intake Etiology oral diet or nutrition support not initated Signs/Symptoms: no nutrition intake at this time 1. Problem Problem increased nutrition needs ( calorie and protein) Etiology increased metabolic demand and energy expenditure Signs/Symptoms: dx of sepsis and decubitus ulcer Malnutrition Alert Is there a minimum of two criteria No selected? Query Text:Check all the applicable criteria. A minimum of two criteria are recommended for diagnosis of either severe or non-severe malnutrition. Malnutrition Related to Morbid Obesity Malnutrition related to morbid obesity No Intervention/Recommendation Comments 1. Monitor NPO status 2. If nutrition support needed , recommend starting Diabitisource at 65ml/hr continuous. This will provide 1872kcal and 93g protein. 3. Monitor wt, skin integrity and labs. 4. F/U as high risk in 2 days, 01/26 Expected Outcomes/Goals Expected Outcomes/Goals 1. Pt to meet at least 75% of nutritional needs via nutrition support with tolerance 2. Wt stability, skin integrity to improve, labs to approach WNL.
[2018-01-24] MEDS: D5-0.9%NS 1,000 ML IV SCH (16:43)
--- NOTE | 2018-01-24 18:35 | Consultation ---
DATE OF CONSULTATION: 01/24/2018 EMERGENCY VASCULAR CONSULTATION REFERRING PHYSICIAN: Dr. Gonzalez. REASON FOR CONSULTATION: Need for central line placement. Thank you for referring this patient to me. HISTORY OF PRESENT ILLNESS: This is an 82-year-old patient with chronic respiratory failure on vent via tracheostomy. He has been bedbound. Comes in because of leukocytosis and septic shock. The patient has stage 4 sacral decubitus ulcer. LABORATORY STUDIES: Show the WBC at 52,700, hemoglobin of 10.4, platelet count of 442,000. The potassium is 5.3, BUN of 15 and creatinine of 1.5. Chest x-ray shows congestive changes and bibasilar infiltrates. There is also a large retrocardiac hiatal hernia. The is at bedside. Informed consent discussed with the patient and his regarding a safe place for placement of the central line. We will place this in the femoral location as the internal jugular veins are not accessible because of the tape around the trach and subclavian vein might result in pneumothorax. JOB# [id number]
--- NOTE | 2018-01-24 19:29 | Operative Report ---
DATE OF SURGERY: 01/24/2018 PREOPERATIVE DIAGNOSES: 1. Septic shock. 2. Congestive heart failure and pneumonia. 3. Acute renal failure. POSTOPERATIVE DIAGNOSES: 1. Septic shock. 2. Congestive heart failure and pneumonia. 3. Acute renal failure. OPERATION DONE: Insertion of central line right femoral vein under ultrasound. PROCEDURE: The right groin was prepped with ChloraPrep and draped in appropriate manner. 1% lidocaine was used into the area identified. An incision was made and a size 18 needle was used to locate the vein. The guide was inserted, the dilator and then the triple lumen catheter. This anchored to the skin with 3-0 silk. The patient tolerated the procedure well. JOB# [id number]
[2018-01-24] MEDS: Metoclopramide 5 mg/mL 2mL Vial IVP SCH (21:15)
[2018-01-24] MEDS: metroNIDAZOLE 500mg/NS 100mL 500 MG/100 ML BAG IV SCH (21:40)
[2018-01-25] MEDS: D5-0.9%NS 1,000 ML IV SCH (00:45)
--- NOTE | 2018-01-25 02:55 | Consultation ---
DATE OF CONSULTATION: 01/24/[address] Gonzalez. HISTORY OF PRESENT ILLNESS: This is an 82-year-old male patient with chronic ventilator, tracheostomy, was brought to the hospital with septic shock, hypotension, possible pneumonia, urinary tract infection. During the hospital stay, the patient was on Levophed and had supraventricular tachycardia and hence, Cardiology consult was requested. PAST MEDICAL HISTORY: Pneumonia; urinary tract infection; chronic respiratory failure, on ventilator with tracheostomy; COPD; aspiration pneumonia; sacral decubitus ulcer, stage IV; diabetes mellitus type 2, uncontrolled, insulin-dependent; diabetic CKD, stage II; dysphagia with PEG placement; and protein-calorie malnutrition. FAMILY HISTORY: Unremarkable. SOCIAL HISTORY: No history of smoking or alcohol abuse. ALLERGIES: No known allergies. PHYSICAL EXAMINATION: VITAL SIGNS: Blood pressure 80 systolic, on Levophed; pulse 120; and respirations on ventilator. HEAD: Normocephalic. No lumps or bumps. EYES: Pupils equal, reactive to light. Fundi show AV nicking, sclerae white, conjunctivae pink. NECK: Carotid 2+. Normal upstroke. JVD flat. Thyroid not palpable. Lymph nodes not palpable. CHEST: Shows increased AP diameter. No kyphosis, scoliosis. LUNGS: Bilateral rales. Decreased breath sounds both the bases. HEART: PMI fifth intercostal space with lateral to midclavicular line. S1, S2, S3, S4, soft systolic murmur. ABDOMEN: Soft. The patient has a PEG in place. NEUROLOGIC: Difficult to evaluate. EXTREMITIES: Peripheral pulses 1+. Minimal pedal edema. CLINICAL IMPRESSION: Septic shock; hypotension; chronic respiratory failure, on ventilator with tracheostomy; acute exacerbation of chronic obstructive pulmonary disease; aspiration pneumonia; urinary tract infection; stage IV sacral decubitus ulcer; diabetes mellitus type 2, insulin-dependent; diabetic chronic kidney disease, stage II; dysphagia with PEG placement; protein-calorie malnutrition; supraventricular tachycardia; and hyperkalemia. PLAN: The patient on Levophed to control the blood pressure, IV antibiotic, IV fluid. Also get an echocardiogram to rule out endocarditis. PROGNOSIS: Guarded. JOB# [id number]
[2018-01-25] MEDS: Albuterol/Ipratropium Neb 3 ML AERS HHN SCH ×3 (02:57→12:50)
[2018-01-25 05:27] LABS: HEMOGLOBIN 9.1 gm/dL (12-16); MANUAL DIFF REQUIRED? YES; MEAN CELL VOLUME 88.9 fl (80-99); MEAN CORPUSCULAR HEMOGLOBIN 29.9 pg (27.0-31.0); MEAN CORPUSCULAR HGB CONC 33.7 pg (28.0-36.0); MEAN PLATELET VOLUME 11.7 fl; PLATELET COUNT 313 Th/cmm (150-400); RED BLOOD COUNT 3.04 Mil/cmm (3.80-5.80); RED CELL DISTRIBUTION WIDTH 15.6 % (11.5-20.0)
[2018-01-25] MEDS: Hydrocortisone Sodium Succ 100 mg Vial IVP SCH ×2 (05:44→12:28)
[2018-01-25] MEDS: Metoclopramide 5 mg/mL 2mL Vial IVP SCH ×2 (05:44→12:28)
[2018-01-25 06:03] LABS: ANION GAP 26.4 (7.0-16.0); CALCIUM SERUM 7.9 mg/dL (8.6-10.3); CHLORIDE 109 mEq/L (98-107); CREATININE - SERUM 3.1 mg/dL (0.7-1.3); GLUCOSE 360 mg/dL (70-105); POTASSIUM SERUM 5.4 mEq/L (3.5-5.1); SODIUM SERUM 146 mEq/L (136-145)
[2018-01-25 06:07] LABS: BAND NEUTROPHILE 2 % (0-10); LYMPHOCYTE 9 % (20-50); NEUTROPHILS 89 % (40-80); PLATELET ESTIMATE ADEQUATE (NORMAL); TOTAL CELLS COUNTED 100
[2018-01-25] MEDS: metroNIDAZOLE 500mg/NS 100mL 500 MG/100 ML BAG IV SCH ×2 (06:10→12:27)
[2018-01-25 06:16] LABS: BUN - UREA NITROGEN 102 mg/dL (7-25)
[2018-01-25] MEDS: INSULIN ASPART SLIDING SCALE 100 UNITS/ML UNIT SUBQ SCH (06:57)
--- NOTE | 2018-01-25 08:19 | Diagnostic Imaging Report ---
CHEST X-RAY: AP view INDICATION: Shortness of breath COMPARISON: 01/24/2018 FINDINGS: Tracheostomy tube is stable. COPD lung changes are seen with bilateral lower lung zone infiltrates, right greater than left. No significant effusion. Heart size is normal. No pneumothorax. IMPRESSION: Bilateral lower lung zone infiltrates, right greater than left. COPD lung changes.
--- NOTE | 2018-01-25 08:20 | Diagnostic Imaging Report ---
KUB single view HISTORY: Increased G-tube drainage COMPARISON: None FINDINGS: Percutaneous gastric feeding tube is noted. Gas-filled bowel are noted in nonspecific pattern. Right lower extending vascular catheter is noted. Postsurgical changes of the left femur partially visualized. Degenerative changes of the spine are noted. Cholecystectomy clips are noted. IMPRESSION: Few gas-filled loops of bowel in an overall nonspecific pattern. G-tube noted. Consider G-tube check if indicated Postsurgical changes.
--- NOTE | 2018-01-25 08:36 | General Progress Note ---
Subjective - Review of Systems Service Date: 01/25/18 Subjective: Pt seen and eval. On neosynephrine and levophed drip. Not improving. On vent. In renal fail as well. Status post central line by Dr. Barcenas. Unresponsive. No n,v,d or sz. Minimal urine output. Objective - Results Result Diagrams: 01/25/18 05:10 01/25/18 05:10 Recent Labs: Laboratory Last Values WBC 34.0 Th/cmm (4.8-10.8) H* D 01/25/18 05:10 RBC 3.04 Mil/cmm (3.80-5.80) L 01/25/18 05:10 Hgb 9.1 gm/dL (12-16) L 01/25/18 05:10 Hct 27.0 % (41.0-60) L 01/25/18 05:10 MCV 88.9 fl (80-99) 01/25/18 05:10 MCH 29.9 pg (27.0-31.0) 01/25/18 05:10 MCHC Differential 33.7 pg (28.0-36.0) 01/25/18 05:10 RDW 15.6 % (11.5-20.0) 01/25/18 05:10 Plt Count 313 Th/cmm (150-400) 01/25/18 05:10 MPV 11.7 fl 01/25/18 05:10 Band Neutrophils % 2 % (0-10) 01/25/18 05:10 Neutrophils (Manual) 89 % (40-80) H 01/25/18 05:10 Lymphocytes 9 % (20-50) L 01/25/18 05:10 Monocytes 4 % (2-10) 01/24/18 04:30 Eosinophils 1 % (0-5) 01/24/18 04:30 Platelet Estimate ADEQUATE (NORMAL) 01/25/18 05:10 PT 11.1 SECONDS (9.5-11.5) 01/23/18 11:15 INR 1.07 (0.5-1.4) 01/23/18 11:15 D-Dimer 2960 ng/mL (100-400) H 01/23/18 11:15 Specimen Source Arterial 01/24/18 10:16 Sample Site Right Radial 01/24/18 10:16 pH 7.25 (7.35-7.45) L 01/24/18 10:16 pCO2 44.0 mmHg (35.0-45.0) 01/24/18 10:16 pO2 76.0 mmHg (80.0-100.0) L 01/24/18 10:16 HCO3 18.8 mEq/L (20.0-26.0) L 01/24/18 10:16 Base Excess -7.7 mEq/L (-3.0-3.0) L 01/24/18 10:16 O2 Saturation 92.0 % (92.0-100.0) 01/24/18 10:16 Lito Test Positive 01/24/18 10:16 Vent Rate 12 01/24/18 10:16 Inspired O2 60 01/24/18 10:16 Tidal Volume 500 01/24/18 10:16 PEEP 5 01/24/18 10:16 Pressure (ins/psv/peep) NA 01/24/18 10:16 Critical Value LZHANG 01/24/18 10:16 Sodium 146 mEq/L (136-145) H 01/25/18 05:10 Potassium 5.4 mEq/L (3.5-5.1) H 01/25/18 05:10 Chloride 109 mEq/L (98-107) H 01/25/18 05:10 Carbon Dioxide 16.0 mEq/L (21.0-31.0) L 01/25/18 05:10 Anion Gap 26.4 (7.0-16.0) H 01/25/18 05:10 BUN 102 mg/dL (7-25) H* 01/25/18 05:10 Creatinine 3.1 mg/dL (0.7-1.3) H 01/25/18 05:10 Est GFR ( Amer) TNP 01/25/18 05:10 Est GFR (Non-Af Amer) TNP 01/25/18 05:10 BUN/Creatinine Ratio 32.9 01/25/18 05:10 Glucose 360 mg/dL (70-105) H 01/25/18 05:10 POC Glucose 377 MG/DL (70 - 105) H 01/25/18 06:51 Hemoglobin A1c % 5.2 % (4.0-6.0) 01/23/18 11:15 Whole Bld Lactic Acid 1.68 mmol/L (0.60-1.99) 01/23/18 11:25 Calcium 7.9 mg/dL (8.6-10.3) L 01/25/18 05:10 Magnesium 2.2 mg/dL (1.9-2.7) 01/23/18 00:05 Total Bilirubin 0.4 mg/dL (0.3-1.0) 01/23/18 11:15 AST 13 U/L (13-39) 01/23/18 11:15 ALT 10 U/L (7-52) 01/23/18 11:15 Alkaline Phosphatase 76 U/L (34-104) 01/23/18 11:15 Creatine Kinase 11 U/L (30-223) L 01/23/18 11:15 Troponin I 0.01 ng/mL (0.01-0.05) 01/23/18 11:15 B-Natriuretic Peptide 166.0 pg/mL (5.0-100.0) H 01/23/18 11:15 Total Protein 9.2 gm/dL (6.0-8.3) H 01/23/18 11:15 Albumin 3.3 gm/dL (4.2-5.5) L 01/23/18 11:15 Globulin 5.9 gm/dL 01/23/18 11:15 Albumin/Globulin Ratio 0.6 (1.0-1.8) L 01/23/18 11:15 Triglycerides 171 mg/dL (<150) H 01/23/18 11:15 Cholesterol 174 mg/dL (<200) 01/23/18 11:15 LDL Cholesterol Direct 133 mg/dL (75-193) 01/23/18 11:15 HDL Cholesterol 28 mg/dL (23-92) 01/23/18 11:15 Amylase 40 U/L (29-103) 01/23/18 11:15 Lipase 23 U/L (11-82) 01/23/18 11:15 Urine Source CLEAN C 01/23/18 11:52 Urine Color YELLOW 01/23/18 11:52 Urine Clarity CLEAR (CLEAR) 01/23/18 11:52 Urine pH 6.5 (4.6 - 8.0) 01/23/18 11:52 Ur Specific Ashley 1.015 (1.005-1.030) 01/23/18 11:52 Urine Protein 30 mg/dL (NEGATIVE) H 01/23/18 11:52 Urine Glucose (UA) NEGATIVE mg/dL (NEGATIVE) 01/23/18 11:52 Urine Ketones NEGATIVE mg/dL (NEGATIVE) 01/23/18 11:52 Urine Blood NEGATIVE (NEGATIVE) 01/23/18 11:52 Urine Nitrate NEGATIVE (NEGATIVE) 01/23/18 11:52 Urine Bilirubin NEGATIVE (NEGATIVE) 01/23/18 11:52 Urine Urobilinogen 0.2 E.U./dL (0.2 - 1.0) 01/23/18 11:52 Ur Leukocyte Esterase SMALL (NEGATIVE) H 01/23/18 11:52 Urine RBC 0-2 /hpf (0-5) H 01/23/18 11:52 Urine WBC 10-25 /hpf (0-5) H 01/23/18 11:52 Ur Epithelial Cells FEW /lpf (FEW) 01/23/18 11:52 Urine Bacteria 1+ /hpf (NONE SEEN) H 01/23/18 11:52 Urine Mucus FEW /lpf (FEW) 01/23/18 11:52 Random Vancomycin 25.6 ug/mL (5.0-40.0) 01/25/18 05:10 - Physical Exam Vitals and I&O: Vital Signs Temp 99.8 F 01/25/18 06:00 Pulse 127 01/25/18 07:26 Resp 26 01/25/18 06:00 BP 98/55 01/25/18 07:00 Pulse Ox 100 01/25/18 06:00 Intake & Output 01/24/18 01/25/18 01/25/18 18:59 06:59 18:59 Intake Total 100 2012.135 608 Output Total 1190 75 Balance -1090 2012.135 533 Weight (lbs) 74.843 kg 74.843 kg Intake: Intake, IV Amount 100 2012.135 608 D5-0.9%Ns 1,000 ml @ 125 1000 mls/hr IV .Q8H [facility] Rx#: [id number] Norepinephrine 8 mg In 471.635 258 Dextrose 5% 250 ml @ 10 MCG/MIN 19.35 mls/hr IV TITR PRN Rx#:[id number] Phenylephrine HCl 10 mg 241.5 250 In Sodium Chloride 0.9% 250 ml @ 60 MCG/MIN 90 mls/hr IV TITR [facility] Rx#: [id number] Piperacillin Sodium/ 100 200 Tazobact 4.5 gm In Sodium Chloride 0.9% 100 ml @ 100 mls/hr IV Q8HR [facility] Rx #:[id number] metroNIDAZOLE 500mg/NS 100 100 100mL 500 mg In 100 ml @ 100 mls/hr IV Q8HR [facility] Rx #:[id number] Oral 0 Output: Gastric Drainage 950 Urine 240 75 Other: # Bowel Movements 0 Weight Source Bedscale Bedscale Active Medications: Current Medications Acetaminophen (Tylenol) 650 mg PO Q6H PRN PRN Reason: HEADACHE/TEMP ABOVE 100F Stop: 03/24/18 18:51 Last Admin: 01/24/18 21:14 Dose: 650 mg Albuterol/Ipratropium (Duoneb Neb) 3 ml HHN Q4HRT [facility] Stop: 03/24/18 22:59 Last Admin: 01/25/18 07:26 Dose: 3 ml [place] Oil/Serbian Balsam/Trypsin (Venelex) 1 appl TP DAILY [facility] Stop: 03/26/18 08:59 Dextrose (D50w) 50 ml IVP PRN PRN PRN Reason: BLOOD SUGAR BELOW 60 Stop: 03/24/18 18:51 Heparin Sodium (Porcine) (Heparin) 5,000 units SUBQ Q12HR [facility] Stop: 03/24/18 20:59 Last Admin: 01/24/18 21:11 Dose: 5,000 units Hydrocortisone Sodium Succinate (Solu-Cortef) 50 mg IVP Q8HR [facility] Stop: 03/24/18 20:59 Last Admin: 01/25/18 05:44 Dose: 50 mg Piperacillin Sod/Tazobactam (Sod 4.5 gm/ Sodium Chloride) 100 mls @ 100 mls/hr IV Q8HR [facility] Stop: 03/24/18 20:59 Last Infusion: 01/25/18 06:45 Dose: Infused Magnesium Sulfate (Magnesium Sulfate Premix) 2 gm in 50 mls @ 25 mls/hr IV DAILY PRN PRN Reason: Magnesium level less than 1.6 Stop: 03/24/18 18:51 Dextrose/Sodium Chloride (D5-0.9%Ns) 1,000 mls @ 125 mls/hr IV .Q8H [facility] Stop: 03/24/18 18:59 Last Admin: 01/25/18 00:45 Dose: 125 mls/hr Norepinephrine Bitartrate 8 mg (/ Dextrose) 258 mls @ 19.35 mls/hr IV TITR PRN ; Protocol; 10 MCG/MIN PRN Reason: BP MAINTENANCE (PER PROTOCOL) Stop: 03/24/18 18:59 Last Admin: 01/25/18 07:48 Dose: 30 mcg/min, 58.05 mls/hr Metronidazole (Flagyl) 500 mg in 100 mls @ 100 mls/hr IV Q8HR [facility] Stop: 03/25/18 20:59 Last Infusion: 01/25/18 07:10 Dose: Infused Phenylephrine HCl 10 mg/ (Sodium Chloride) 250 mls @ 90 mls/hr IV TITR [facility]; 60 MCG/MIN PRN Reason: Protocol Stop: 03/26/18 01:29 Last Admin: 01/25/18 07:50 Dose: 60 mcg/min, 90 mls/hr Insulin Aspart (Novolog Insulin Sliding Scale) 0 units SUBQ ACHS [facility] PRN Reason: Protocol Stop: 03/24/18 20:59 Last Admin: 01/25/18 06:57 Dose: 12 units Latanoprost (Xalatan 0.005% Ophth Soln) 1 drop EACH EYE HS [facility] Stop: 03/24/18 20:59 Last Admin: 01/24/18 21:15 Dose: Not Given Lorazepam (Ativan) 1 mg IVP Q4HR PRN; Protocol PRN Reason: Anxiety Stop: 03/24/18 18:51 Last Admin: 01/23/18 23:38 Dose: 1 mg Metoclopramide HCl (Reglan) 10 mg IVP Q8HR [facility] Stop: 03/25/18 20:59 Last Admin: 01/25/18 05:44 Dose: 10 mg Miscellaneous (Zosyn Iv Per Pharmacy) 1 ea MC PRN PRN PRN Reason: PROTOCOL Stop: 03/24/18 16:01 Miscellaneous (Vancomycin Iv Per Pharmacy) 1 ea MC PRN PRN PRN Reason: PROTOCOL Stop: 03/24/18 18:50 Miscellaneous (Probiotic Screen) 1 ea MC PRN PRN PRN Reason: PROTOCOL Stop: 03/25/18 10:09 Morphine Sulfate (Morphine) 1 mg IVP Q4H PRN PRN Reason: Severe Pain Stop: 03/24/18 18:51 Last Admin: 01/24/18 03:00 Dose: 1 mg Ondansetron HCl (Zofran) 4 mg IVP Q6H PRN PRN Reason: Nausea / Vomiting Stop: 03/24/18 18:51 Pantoprazole Sodium (Protonix) 40 mg IVP DAILY [facility] Stop: 03/26/18 08:59 Potassium Chloride (Potassium Chloride Elixir) 40 meq GT DAILY PRN PRN Reason: k level less than 3.5 Stop: 03/24/18 18:51 Tramadol HCl (Ultram) 50 mg GT Q6H PRN PRN Reason: Pain (Moderate) Stop: 03/24/18 18:52 General: no Alert, no Oriented x3 HEENT: no PERRLA, no EOMI Neck: Supple, no JVD Cardiovascular: Other (irregular rate) Lungs: Other (has rales) Abdomen: Bowel sounds, Soft Extremities: no Clubbing Neurological: no Normal speech, no Sensation intact Skin: Breakdown, no Rash Psych/Mental Status: Other (unresponsive) - Procedures Procedures: Procedures Procedure Code Date RESPIRATORY VENTILATION, 24-96 CONSECUTIVE HOURS [id number] 01/23/18 Assessment/Plan - Assessment Assessment: Fail to thrive Septic shock VMN Renal fail Resp fail Hyperkalemia DM-OOC - Plan Plan: Discussed poor prognosis with sister. Pt is DNR. She's in agreement for hospice care. After she sees the Pt today, we'll do terminal weaning. Consider hospice if Pt tolerates weaning. Will discuss with specialists as well. DC labs and tests-sister's wishes. Nutritional Asmnt/Malnutr-PDOC - Dietary Evaluation Malnutrition Findings (Please click <Entered> for more info): Nutritional Asmnt/Malnutrition Start: 01/24/18 15: 20 Text: Status: Complete Freq: Document 01/24/18 15:23 SINGH (Rec: 01/24/18 15:36 [email or web address]) Nutritional Asmnt/Malnutrition Patient General Information Nutritional Screening High Risk Consult Diagnosis sepsis Pertinent Medical Hx/Surgical Hx chronic respiratory failure, COPD, pneumonias, aspiration, dysphagia, trach, Gtube, abdominal surgery Subjective Information Consult received for elevated BG. Pt seen on vent via trach. No diet order at this time. TF clamped per nurse note. Pt on levophed noted. Current Diet Order/ Nutrition Support no diet order Pertinent Medications D5-0.9%ns, novolog, protonix, piperacillin Pertinent Labs 01/24 Na 141, K 5.3, Cl 109, BUN 59, Cr 1.5, glucose 256, POC 215-221 01/23 Na 140, K 4.5, Cl 99, BUN 34, Cr 0.7, glucose 186, A1c 5.2 Nutritional Hx/Data Height 1.83 m Height (Calculated Centimeters) 182.9 Current Weight (lbs) 74.843 kg Weight (Calculated Kilograms) 74.8 Weight (Calculated Grams) 75796.7 [place] Body Weight 178 % [place] Body Weight 93 Body Mass Index (BMI) 22.4 Weight Status Approriate GI Symptoms GI Symptoms None Last BM 01/24 Difficult in: None Usual diet at home glucerna 1.5 at 50ml/hr x 20hr , providing 1500kcal daily Skin Integrity/Comment: decubitus ulcer to sacrum Estimated Nutritional Goals BEE in Kcals: Using Current wt Calories/Kcals/Kg 27-32 Kcals Calculated 3275-8597 Protein: Using Current wt Protein g/k.2-1.4 Protein Calculated 90-105 Fluid: ml 2024-2400ml (1ml/kcal) Nutritional Problem 2. Problem Problem inadequate energy intake Etiology oral diet or nutrition support not initated Signs/Symptoms: no nutrition intake at this time 1. Problem Problem increased nutrition needs ( calorie and protein) Etiology increased metabolic demand and energy expenditure Signs/Symptoms: dx of sepsis and decubitus ulcer Malnutrition Alert Is there a minimum of two criteria No selected? Query Text:Check all the applicable criteria. A minimum of two criteria are recommended for diagnosis of either severe or non-severe malnutrition. Malnutrition Related to Morbid Obesity Malnutrition related to morbid obesity No Intervention/Recommendation Comments 1. Monitor NPO status 2. If nutrition support needed , recommend starting Diabitisource at 65ml/hr continuous. This will provide 1872kcal and 93g protein. 3. Monitor wt, skin integrity and labs. 4. F/U as high risk in 2 days, 01/26 Expected Outcomes/Goals Expected Outcomes/Goals 1. Pt to meet at least 75% of nutritional needs via nutrition support with tolerance 2. Wt stability, skin integrity to improve, labs to approach WNL.
[2018-01-25] MEDS ORDERED: Venelex 60gm Tube TP SCH (09:00)
[2018-01-25 09:07] LABS: ALLEN TEST YES; pH 7.17 (7.35-7.45)
[2018-01-25] MEDS ORDERED: Sodium Bicarbonate 8.4% 50mEq PFS IVP ONE ×2 (09:58→10:02)
[2018-01-25] MEDS ORDERED: Morphine Sulfate 4 mg/mL 1mL Syr IVP PRN (13:49)
--- NOTE | 2018-01-26 20:02 | Discharge Summary ---
DATE OF DISCHARGE: 01/25/2018 SUMMARY DATE OF : 01/25/2018 CAUSE OF ADMISSION: The patient was a confused 82-year-old male who presents from [facility] for elevated white count and possible sepsis. He was found to be in septic shock. He was admitted to ICU on Levophed drip. ADMITTING DIAGNOSES: 1. Sepsis. 2. Acute on chronic respiratory failure. 3. Failure to thrive. 4. Vasomotor nephropathy. 5. Hyperkalemia. 6. Metabolic encephalopathy. 7. Diabetes mellitus, out of control. 8. Infected stage 4 sacrococcyx decubitus ulcer. 9. Chronic obstructive pulmonary disease. 10. Dysphagia. DISCHARGE DIAGNOSIS: Acute cardiopulmonary arrest. SUMMARY OF HOSPITAL COURSE: The patient was admitted to ICU. His point of contact was a sister, Hayde Shah. We had a long discussion on multiple occasions and discussed the poor prognosis. The patient was on 2 drips and maxed that on Levophed and then was started on Maynor-Synephrine. His white count continued to elevate and he was in full renal failure along with multiorgan failure. The sister stated that it is her wish to have him DNR and she does not want him to suffer anymore. After discussing with the family, she decided to make the patient comfort care only. She wanted him to be put on hospice. We started the protocol for comfort care and the patient on 01/25/2018. Prognosis was poor. Physical exam and labs as charted. CONSULTS: Dr. Maya for Pulmonary and Dr. Jian Simeon for ID. JOB# [id number]
== END 2018-01-25 16:00 | disposition expired | DRG 871 ==
LOC: ER 10:48 → ICU 15:50
PROVIDERS: ADMIT General Practice; ATTEND General Practice
PROC: 5A1945Z Respiratory Ventilation, 24-96 Consecutive Hours (ICD-10-PCS; principal; 2018-01-23)
PROC: 06HM33Z Insertion of Infusion Device into Right Femoral Vein, Percutaneous Approach (ICD-10-PCS; 2018-01-24)
PROC: B54BZZA Ultrasonography of Right Lower Extremity Veins, Guidance (ICD-10-PCS; 2018-01-24)
DX: A41.9 Sepsis, unspecified organism (principal); L89.154 Pressure ulcer of sacral region, stage 4; N17.0 Acute kidney failure with tubular necrosis; G93.41 Metabolic encephalopathy; R65.21 Severe sepsis with septic shock; J69.0 Pneumonitis due to inhalation of food and vomit; K29.71 Gastritis, unspecified, with bleeding; J96.21 Acute and chronic respiratory failure with hypoxia; N39.0 Urinary tract infection, site not specified; Z99.11 Dependence on respirator [ventilator] status; I47.1 Supraventricular tachycardia; J44.1 Chronic obstructive pulmonary disease with (acute) exacerbation; E46 Unspecified protein-calorie malnutrition; E87.5 Hyperkalemia; E11.21 Type 2 diabetes mellitus with diabetic nephropathy; E78.5 Hyperlipidemia, unspecified; K21.9 Gastro-esophageal reflux disease without esophagitis; F17.210 Nicotine dependence, cigarettes, uncomplicated; Z93.0 Tracheostomy status; E86.0 Dehydration; D64.9 Anemia, unspecified; Z66 Do not resuscitate; E11.22 Type 2 diabetes mellitus with diabetic chronic kidney disease; I12.9 Hypertensive chronic kidney disease with stage 1 through stage 4 chronic kidney disease, or unspecified chronic kidney disease; N18.2 Chronic kidney disease, stage 2 (mild); Z68.22 Body mass index [BMI] 22.0-22.9, adult; R62.7 Adult failure to thrive; I46.9 Cardiac arrest, cause unspecified; Z74.01 Bed confinement status
CPT/HCPCS: 36415-UA; 36600-90; 71045-TC; 74000-TC; 78580-TC; 80048-TC; 80053-TC; 80061-TC; 80202-TC; 81001-TC; 82150-TC; 82550-TC; 82803-TC; 82948-90; 83036-90; 83605; 83690-TC; 83735-TC; 83880-TC; 84484-TC; 85007-TC; 85025-TC; 85027-TC; 85379-TC; 85610-TC; 87086-90; 90799; 93005; 94002; 94003; 94640; 94760; 96375; A9540; C9113; J1644; J1720; J1815; J1885; J1956; J2060; J2370; J2405; J2543; J2765; J3370; J7030; J7040; J7042; X6452; Z7610